=== PATIENT | female | born 1980 | race Caucasian/White ===

== ENCOUNTER 2022-02-07 10:04 | Emergency (ER) | payer SELFPAY ==
[~2022-02-07] VITALS: Ht 157.5 cm; Wt 119.5 kg
[~2022-02-07 10:04] MED LIST: ALPR2TAB5 PO; LURA40TA2 PO; ZOLP10TA PO
[2022-02-07] MEDS ORDERED: IV NORMAL SALINE 1000ML BAG 1,000 ML IV ONE (10:30)
[2022-02-07] MEDS ORDERED: ONDANSETRON PF 4 MG/2 ML VIAL. IVP ONE (10:30)
[2022-02-07 10:56] LABS: BACTERIA,URINE FEW /HPF (0-FEW); RBC,URINE RARE /HPF (0-2); WBC,URINE RARE /HPF (0-4)
[2022-02-07 11:03] LABS: BASO % 0 % (0-3); EOS # 0.2 x10^3/uL (0.0-0.7); EOS % 3 % (0-3); HEMATOCRIT 38.3 % (36.0-47.0); HEMOGLOBIN 12.8 g/dL (12.0-15.5); LYMPH # 1.5 x10^3/uL (1.0-4.8); LYMPH % 22 % (24-48); MEAN CORPUSCULAR HEMOGLOBIN 28 pg (25-35); MEAN CORPUSCULAR HGB CONC 34 g/dL (31-37); MEAN CORPUSCULAR VOLUME 84 fL (79-100); MONO # 0.5 x10^3/uL (0.0-1.1); MONO % 7 % (0-9); NEUT # 4.7 x10^3/uL (1.8-7.7); NEUT % 68 % (31-73); PLATELET COUNT 239 x10^3/uL (140-400); RED BLOOD COUNT 4.56 x10^6/uL (3.50-5.40); RED CELL DISTRIBUTION WIDTH 14.3 % (11.5-14.5); WHITE BLOOD COUNT 6.9 x10^3/uL (4.0-11.0)
[2022-02-07] MEDS ORDERED: KETOROLAC 30 MG/ML VIAL. IVP ONE (11:15)
[2022-02-07 11:17] LABS: CALCIUM 8.5 mg/dL (8.5-10.1); CREATININE 0.6 mg/dL (0.6-1.0); GFR 110.2; POTASSIUM 3.8 mmol/L (3.5-5.1)
[2022-02-07 11:22] LABS: ALBUMIN 3.3 g/dL (3.4-5.0); ALBUMIN/GLOBULIN RATIO 0.9 (1.0-1.7); TOTAL BILIRUBIN 0.5 mg/dL (0.2-1.0); TOTAL PROTEIN 7.1 g/dL (6.4-8.2)
[2022-02-07] MEDS ORDERED: IOHEXOL 300 MG/ML 100ML VIAL. IV ONE (11:30)
[2022-02-07] MEDS ORDERED: CONTRAST GIVEN. MC PRN (11:45)
--- NOTE | 2022-02-07 11:53 | RAD ---
EXAM: Abdomen and pelvis CT with intravenous contrast. HISTORY: Pain. TECHNIQUE: Computed tomographic images of the abdomen and pelvis were obtained following the administ ration of intravenous contrast. Multiplanar reformatting was performed. *One or more of the following individualized dose reduction techniques were utilized for this examina tion: 1. Automated exposure control. 2. Adjustment of the mA and/or kV according to patient size. 3. Use of iterative reconstruction technique. COMPARISON: None. FINDINGS: Evaluation of the lower thorax is unremarkable. There is hepatomegaly and hepatic steatosis . There are ill-defined hypodense lesions within the liver, measuring approximately 1.8 cm within the superior and inferior right hepatic lobe. There is mild splenomegaly. The gallbladder and pancreas are unremarkable. The right adrenal gland is unremarkable. There is a 2. 1 cm left adrenal nodule, the attenuation which is solidly greater than expected for an adenoma. The kidneys are unremarkable. There is no appendicitis. There is no bowel obstruction. There is distal colonic diverticulosis. The bladder, uterus and ovaries are unremarkable. The aorta is normal in caliber. There is no lymphadenop athy. There is no acute or suspicious osseous finding. IMPRESSION: 1. No acute abdominal or pelvic finding. 2. Hepatosplenomegaly and hepatic steatosis. 3. Small ill-defined hypodense lesions within the right hepatic lobe measuring up to 1.8 cm. These ma y be visible sonographically or can be better assessed with a liver protocol MRI. 4. Distal colonic diverticulosis. 5. Left adrenal nodule, the attenuation which is greater than expected for an adenoma. This can be fu rther assessed with an adrenal protocol CT or MRI. Electronically signed by: Sandra Wisdom MD (02/07/2022 11:51 AM) [facility]
[2022-02-07 12:37] VITALS: BP 144/60
[2022-02-07 12:40] LABS: INFLUENZA A PATIENT NEGATIVE (NEGATIVE); INFLUENZA B PATIENT NEGATIVE (NEGATIVE)
[2022-02-07] MEDS ORDERED: ONDA4TAB12 PO (12:44)
--- NOTE | 2022-02-07 12:45 | PHYS DOC ---
Past Medical History Past Medical History: Other Additional Past Medical Histor: "manic depression", insomnia Past Surgical History: Tubal ligation Additional Past Surgical Histo: dental Smoking Status: Former Smoker Alcohol Use: None Drug Use: Marijuana General Adult EDM: Chief Complaint: ABDOMINAL PAIN HPI: HPI: Patient is a 41-year-old female presents to the emergency department complaining of intermittent abdominal discomfort for the past 3 days. Reports feeling very tired on Saturday, then waking up Saturday morning having her abdominal discomfort seem to come and go and move around her abdomen while she is out walking around, resolves when she lays down and holds a pillow close to her abdomen. Reports 1 bout of diarrhea on Saturday, no further diarrhea, has not vomited however does complain of waves of nausea. Patient denies recent fever or chills, states she is vaccinated for the COVID-19 virus however has not received a flu virus vacci nation this season. Denies vaginal discharge, rashes or lesions to her vagina, denies STI concerns, denies increased urinary frequency, urinary pain, urinary pressure, urinary burning, hematuria or other dysuria. Patient reports normal bowel movements both Saturday and this morning. Denies seeing blood in her stool. Patient reports off-and-on feelings of chills however denies fever. Patient reports she got up for work this morning and was unable to get to work so decided to stop off at a local [facility] and get a COVID-19 test which was negative then came here to the emergency department for evaluation. Patient reports her pain as bad as 5 out of 10 however denies pain at this time. Patient describes her pain as a sharp stabbing sensation without radiation. Patient reports her last menstrual cycle was last week with normal duration of flow. Patient reports her only surgery is a tubal ligation 10 years ago. Patient denies taking medication stating she was on medicines Latuda, Ativan, Ambien for "mental health issues "but decided to take herself off these medicines approximately 1 year ago. Patient denies chest pains, chest or nasal congestion, syncopal or near syncopal episodes, denies other physical complaints or physical concerns. Review of Systems: Review of Systems: 14 body systems of review of systems have been reviewed. See HPI for pertinent positives and negative responses, otherwise all other systems are negative, nonpertinent or noncontributory. Constitutional: Negative except as outlined in HPI above. Skin: Negative except as outlined in HPI above. Eyes: Negative except as outlined in HPI above. HENT: Negative except as outlined in HPI above. Respiratory: Negative except as outlined in HPI above. Cardiovascular: Negative except as outlined in HPI above. GI: Negative except as outlined in HPI above. : Negative except as outlined in HPI above. Musculoskeletal: Negative except as outlined in HPI above. Integument: Negative except as outlined in HPI above. Neurologic: Negative except as outlined in HPI above. Endocrine: Negative except as outlined in HPI above. Lymphatic: Negative except as outlined in HPI above. Psychiatric: Negative except as outlined in HPI above. Heart Score: C/O Chest Pain: No Risk Factors: Risk Factors: DM, Current or recent (<one month) smoker, HTN, HLP, family history of CAD, obesity. Risk Scores: Score 0 - 3: 2.5% MACE over next 6 weeks - Discharge Home Score 4 - 6: 20.3% MACE over next 6 weeks - Admit for Clinical Observation Score 7 - 10: 72.7% MACE over next 6 weeks - Early Invasive Strategies Current Medications: Current Medications Medications (Trade) Dose Ordered Sig/Nicolasa Start Time Stop Time Status Last Admin Dose Admin Info (CONTRAST GIVEN -- Rx MONITORING) 1 each PRN DAILY PRN 02/07/22 11:45 02/09/22 11:44 Iohexol (Omnipaque 300 Mg/ml) 75 ml 1X ONCE 02/07/22 11:30 02/07/22 11:37 DC 02/07/22 11:39 75 ML Ketorolac Tromethamine (Toradol 30mg Vial) 30 mg 1X ONCE 02/07/22 11:15 02/07/22 11:16 DC 02/07/22 11:21 30 MG Ondansetron HCl (Zofran) 4 mg 1X ONCE 02/07/22 10:30 02/07/22 10:33 DC 02/07/22 10:49 4 MG Sodium Chloride 1,000 ml @ 1,000 mls/hr 1X ONCE 02/07/22 10:30 02/07/22 11:29 DC 02/07/22 10:49 1,000 MLS/HR Allergies: Allergies: Allergies Coded Allergies Type Severity Reaction Last Updated Verified No Known Drug Allergies 02/07/22 No Physical Exam: PE: Constitutional: Well developed, well nourished, no acute distress, non-toxic appearance. 41-year-old female in no apparent distress. HENT: Normocephalic, atraumatic. Eyes: Conjunctiva normal, no discharge. Neck: Normal range of motion, no stridor. Cardiovascular: No cyanosis appreciated, distal cap refill less than 2 seconds. Regular rate and rhythm, heart sounds S1-S2 auscultation. Lungs & Thorax: Patient is in no respiratory distress, lung sounds clear to auscultation all lung mast, normal work of breathing. Abdomen: Abdomen round, patient morbidly obese BMI 48.2, no skin discoloration of the abdomen appreciated, no masses, no megaly, there is no pain to palpation. Normal bowel sounds all 4 quadrants. Skin: Warm, dry, no erythema, no rash. Back: No tenderness, no deformities. Extremities: No tenderness, no cyanosis, no clubbing, ROM intact, no edema. Neurologic: Alert and oriented X 3, normal motor function, normal sensory function, no focal deficits noted. Psychologic: Affect normal, judgement normal, mood normal. Current Patient Data: Labs: Laboratory Tests Test 02/07/22 10:13 02/07/22 10:33 02/07/22 10:45 Urine Collection Type Unknown Urine Color (Auto) Yellow Urine Turbidity Clear Urine pH (Auto) 5.0 (<5.0-8.0) Urine Specific [place] 1.026 (1.000-1.030) Urine Protein (Auto) 70 mg/dL (Negative) Urine Glucose (Auto)(UA) Negative mg/dL (Negative) Urine Ketones (Auto) Negative mg/dL (Negative) Urine Blood (Auto) Negative (Negative) Urine Nitrite Negative (Negative) Urine Bilirubin (Auto) Negative (Negative) Urine Urobilinogen (Auto) Normal mg/dL (Normal) Urine Leukocyte Esterase (Auto) Negative (Negative) Urine RBC Rare /HPF (0-2) Urine WBC Rare /HPF (0-4) Urine Squamous Epithelial Cells Few /LPF Urine Bacteria Few /HPF (0-FEW) Urine Mucus Slight /LPF POC Urine HCG, Qualitative Hcg negative (Negative) White Blood Count 6.9 x10^3/uL (4.0-11.0) Red Blood Count 4.56 x10^6/uL (3.50-5.40) Hemoglobin 12.8 g/dL (12.0-15.5) Hematocrit 38.3 % (36.0-47.0) Mean Corpuscular Volume 84 fL (79-100) Mean Corpuscular Hemoglobin 28 pg (25-35) Mean Corpuscular Hemoglobin Concent 34 g/dL (31-37) Red Cell Distribution Width 14.3 % (11.5-14.5) Platelet Count 239 x10^3/uL (140-400) Neutrophils (%) (Auto) 68 % (31-73) Lymphocytes (%) (Auto) 22 % (24-48) L Monocytes (%) (Auto) 7 % (0-9) Eosinophils (%) (Auto) 3 % (0-3) Basophils (%) (Auto) 0 % (0-3) Neutrophils # (Auto) 4.7 x10^3/uL (1.8-7.7) Lymphocytes # (Auto) 1.5 x10^3/uL (1.0-4.8) Monocytes # (Auto) 0.5 x10^3/uL (0.0-1.1) Eosinophils # (Auto) 0.2 x10^3/uL (0.0-0.7) Basophils # (Auto) 0.0 x10^3/uL (0.0-0.2) Sodium Level 140 mmol/L (136-145) Potassium Level 3.8 mmol/L (3.5-5.1) Chloride Level 105 mmol/L (98-107) Carbon Dioxide Level 26 mmol/L (21-32) Anion Gap 9 (6-14) Blood Urea Nitrogen 11 mg/dL (7-20) Creatinine 0.6 mg/dL (0.6-1.0) Estimated GFR (Cockcroft-Gault) 110.2 BUN/Creatinine Ratio 18 (6-20) Glucose Level 109 mg/dL (70-99) H Calcium Level 8.5 mg/dL (8.5-10.1) Total Bilirubin 0.5 mg/dL (0.2-1.0) Aspartate Amino Transferase (AST) 18 U/L (15-37) Alanine Aminotransferase (ALT) 32 U/L (14-59) Alkaline Phosphatase 97 U/L (46-116) Total Protein 7.1 g/dL (6.4-8.2) Albumin 3.3 g/dL (3.4-5.0) L Albumin/Globulin Ratio 0.9 (1.0-1.7) L Lipase 50 U/L (73-393) L Laboratory Tests 02/07/22 10:45 Laboratory Tests 02/07/22 10:45 Vital Signs: Vital Signs Date Time Temp Pulse Resp B/P (MAP) Pulse Ox O2 Delivery O2 Flow Rate FiO2 02/07/22 11:37 88 126/62 (83) Room Air 02/07/22 11:22 20 98 02/07/22 10:09 98.3 98.3 EKG: EKG: [] Radiology/Procedures: Radiology/Procedures: REASON: abdominal pain PROCEDURE: CT ABD PELV W/ IV CONTRST ONLY EXAM: Abdomen and pelvis CT with intravenous contrast. HISTORY: Pain. TECHNIQUE: Computed tomographic images of the abdomen and pelvis were obtained following the administration of intravenous contrast. Multiplanar reformatting was performed. *One or more of the following individualized dose reduction techniques were utilized for this examination: 1. Automated exposure control. 2. Adjustment of the mA and/or kV according to patient size. 3. Use of iterative reconstruction technique. COMPARISON: None. FINDINGS: Evaluation of the lower thorax is unremarkable. There is hepatomegaly and hepatic steatosis. There are ill-defined hypodense lesions within the liver, measuring approximately 1.8 cm within the superior and inferior right hepatic lobe. There is mild splenomegaly. The gallbladder and pancreas are unremarkable. The right adrenal gland is unremarkable. There is a 2.1 cm left adrenal nodule, the attenuation which is solidly greater than expected for an adenoma. The kidneys are unremarkable. There is no appendicitis. There is no bowel obstruction. There is distal colonic diverticulosis. The bladder, uterus and ovaries are unremarkable. The aorta is normal in caliber. There is no lymphadenopathy. There is no acute or suspicious osseous finding. IMPRESSION: 1. No acute abdominal or pelvic finding. 2. Hepatosplenomegaly and hepatic steatosis. 3. Small ill-defined hypodense lesions within the right hepatic lobe measuring up to 1.8 cm. These may be visible sonographically or can be better assessed with a liver protocol MRI. 4. Distal colonic diverticulosis. 5. Left adrenal nodule, the attenuation which is greater than expected for an adenoma. This can be further assessed with an adrenal protocol CT or MRI. Electronically signed by: Sandra Wisdom MD (02/07/2022 11:51 AM) [facility] Course & Med Decision Making: Course & Med Decision Making Pertinent Labs and Imaging studies reviewed. (See chart for details) 41-year-old female, vital signs reviewed, presents to the emergency department concerning intermittent abdominal pain for the past 3 days. Physical examina tion is unremarkable. Will order CBC, CMP, lipase, urinalysis assay, urine test, CT abdomen pelvis The patient's urine is not infected, she is not , CBC is unremarkable, CMP unremarkable. Patient CT abdomen pelvis with IV contrast nonconcerning for an acute abdominal process, does show concerning hepatic lesions, hepatic steatosis, left adrenal lesion, recommended by house radiologist for outpatient MRI/CT/sonogram specific imaging. The patient's liver enzymes were all within normal limits and nonconcerning. Patient's lipase is nonconcerning. Discussed CT imaging findin with patient, patient states she has been told about spots on her liver in the past by her primary care physician however has not followed up over the past year. Discussed with patient strict follow-up with primary care this week, patient states she will make an appointment when she is released from the hospital today, patient does remain pain-free, patient states nausea medication helped and she is no longer nauseated. Patient states that her stomach does sometimes feel like a "sour stomach "states that she has used Maalox and Mylanta in the past for the similar stomach discomfort symptoms and has worked well however did not have any money to pay for [id number] antacids. patient remains nontoxic in appearance. Discussed with patient strict return to ER precautions and concerns. May use Maalox or Mylanta [id number] for any returning "sour stomach "sensations. Patient gave verbal understanding of and is amenable to ED discharge planning. Patient is asking for antinausea medication prescription in the event nausea does return. Discussed with the patient all findings and diagnostic testing as well as the need to follow-up with their primary care provider for further evaluation and treatment or return to the ED if any new or worsening symptoms. Strict return precautions were also discussed at length, the patient voiced understanding and agreement with the discharge planning. The patient was nontoxic in appearance, in no apparent distress, and hemodynamically stable at the time of disposition. Tanya Disclaimer: Dragon Disclaimer: This electronic medical record was generated, in whole or in part, using a voice recognition dictation system. Departure Departure Impression: Primary Impression: Abdominal pain Qualified Codes: R10.9 - Unspecified abdominal pain Additional Impressions: Nausea Diarrhea Qualified Codes: R19.7 - Diarrhea, unspecified Abnormal computed tomography angiography (CTA) of abdomen and pelvis Disposition: HOME / SELF CARE / HOMELESS Condition: GOOD Referrals: ALICIA CABRAL MD (PCP) Patient Instructions: Abdominal Pain (Nonspecific) Additional Instructions: You were seen today in the emergency department for abdominal pain with diarrhea nausea. Your urine did not show any signs of infection, your lab work did not show any concerning findings of electrolyte imbalances or infection. There were no concerning labs that would indicate problems with your kidney function or liver function. You were given antinausea medicine and pain medicine in the emergency department today which seemed to help. As we discussed, there were abnormal findings on your CT abdomen and pelvis, however, these abnormal findings do not indicate or require require an immediate admission to the hospital or attention by a healthcare specialist, I do recommend you follow-up with your primary care physician soon to discuss these abnormal findings, our r adiologist recommended either a hepatic sonogram or liver protocol MRI to better assess. Also an adrenal protocol CT or MRI to better assess your left adrenal nodule. It is important that you follow-up soon for ongoing management of these abnormal CT findings. I am prescribing you antinausea medicine to use in the event your nausea does return. You may continue to use Tylenol or Motrin or [id number] Maalox or Mylanta for any return of abdominal discomfort. Thank you for visiting our Emergency Department. It was a pleasure taking care of you today in the emergency department and we appreciate you trusting us with your care. If any additional problems come up don't hesitate to return to visit us. Please follow up with your primary care provider so they can plan additional care if needed and know about the problem that you had. If symptoms worsen come back to the Emergency Department. Any concerning symptoms that start such as chest pain, shortness of air, weakness or numbness on one side of the body, running high fevers or any other concerning symptoms return to the ER. Scripts Ondansetron (ONDANSETRON ODT) 4 Mg Tab.rapdis 1 TAB PO PRN Q6-8HRS for nausea, #16 TAB 0 Refills Prov: ЕЛЕНА SANDOVAL APRN 02/07/22 ЕЛЕНА SANDOVAL APRN Feb 07, 2022 12:45
== END 2022-02-07 12:55 | disposition home or self-care (01) ==
LOC: ER 10:04
DX: R93.5 Abnormal findings on diagnostic imaging of other abdominal regions, including retroperitoneum (principal); R10.9 Unspecified abdominal pain; R19.7 Diarrhea, unspecified; R11.0 Nausea; Z98.51 Tubal ligation status
CPT/HCPCS: 36415; 74177; 80053; 81001; 81025; 83690; 85025; 87428; 96361; 96374; 96375; 99285; J1885; J2405; J7030; Q9967